=== PATIENT | female | born 1975 | race Caucasian/White ===

== ENCOUNTER 2021-08-07 07:20 | Emergency (ER) | payer BC ==
[~2021-08-07] VITALS: Ht 157.5 cm; Wt 114.0 kg
[2021-08-07 07:20] VITALS: BP 110/81
[2021-08-07] MEDS ORDERED: NIRM1TAB PO (08:39)
[2021-08-07] MEDS ORDERED: DEXA6TAB6 PO (08:39)
--- NOTE | 2021-08-07 08:50 | NUR ---
Pt given and understands d/c instructions. Ambulatory with a steady gait.
== END 2021-08-07 08:50 | disposition home or self-care (01) ==
LOC: ER 07:21
DX: U07.1 COVID-19 (principal); J06.9 Acute upper respiratory infection, unspecified; R05.9 Cough, unspecified; R50.9 Fever, unspecified; R19.7 Diarrhea, unspecified; R53.83 Other fatigue; F32.A Depression, unspecified; Z85.3 Personal history of malignant neoplasm of breast; Z98.890 Other specified postprocedural states
CPT/HCPCS: 71045; 87635; 99284; C9803